=== PATIENT | female | born 1955 | race Hispanic/Latino ===

== ENCOUNTER → 2019-05-25 | Outpatient (CLI) | payer OTHER | END | disposition home or self-care (01) | LOC: SHCH 08:16 | PROVIDERS: ATTEND Internal Medicine Cardiovascular Disease | DX: I10 Essential (primary) hypertension (principal); R42 Dizziness and giddiness | CPT/HCPCS: 93306; 93356 ==

== ENCOUNTER → 2021-07-03 | Outpatient (CLI) | payer OTHER ==
[~2021-07-03] VITALS: Ht 154.9 cm; Wt 69.9 kg
[~2021-07-03] MED LIST: REGADENOSON 0.4 MG/5 ML PF SYG IVP SCH
== END | disposition home or self-care (01) ==
LOC: SHCH 07:36
PROVIDERS: ATTEND Internal Medicine Cardiovascular Disease
DX: I11.9 Hypertensive heart disease without heart failure (principal); I25.9 Chronic ischemic heart disease, unspecified
CPT/HCPCS: 78452; 93017; 96374; A9500 ×2; J2785

== ENCOUNTER 2021-08-11 05:32 | Day surgery (SDC) | payer OTHER ==
[2021-08-07 12:58] LABS: APPEARANCE,URINE Clear (CLEAR); BILIRUBIN,URINE Negative (NEGATIVE); COLOR,URINE Yellow (YELLOW); GLUCOSE, URINE (UA) Negative (NEGATIVE); KETONES,URINE Negative (NEGATIVE); LEUKOCYTE ESTERASE ,URINE Moderate (NEGATIVE); NITRATE,URINE Negative (NEGATIVE); OCCULT BLOOD,URINE Nonhemolyzed Trace (NEGATIVE); PROTEIN,URINE Negative (NEGATIVE)
[2021-08-07 13:14] LABS: INR 1.06 (0.85-1.15); PROTHROMBIN TIME 11.5 SEC (9.6-11.6)
[2021-08-07 13:16] LABS: CREATININE 0.6 mg/dL (0.5-1.5); PARTIAL THROMBOPLASTIN TIME 26.9 SEC (26.3-35.5); POTASSIUM 4.1 mmol/L (3.5-5.1)
[2021-08-07 14:23] LABS: BACTERIA,URINE Few /HPF (None Seen); RBC,URINE 0-1 /HPF (0-1)
[2021-08-10 10:55] LABS: BASOPHILS % (AUTO) 0.6 % (0.0-5.0); LYMPHOCYTES % (AUTO) 22.9 % (21.0-51.0); MEAN CORPUSCULAR HEMOGLOBIN 31.2 pg (27.0-33.0); MEAN CORPUSCULAR HGB CONC 34.5 g/dL (32.0-36.0); MEAN CORPUSCULAR VOLUME 90.5 fL (79-99); MONOCYTES % (AUTO) 7.3 % (3.0-13.0); PLATELET COUNT (AUTO) 263 K/uL (130-400); RED CELL DISTRIBUTION WIDTH 12.9 % (11.0-15.5); WHITE BLOOD COUNT (AUTO) 8.3 K/uL (4.8-10.8)
[2021-08-11] VITALS (14 sets, daily range): BP systolic 134–169; BP diastolic 72–81
[~2021-08-11] VITALS: Ht 152.4 cm; Wt 69.7 kg
[~2021-08-11 05:32] MED LIST changes: +LOSA1TAB42 PO; +LOVA40TA2 PO; +METO25TA6 PO; +OMEP-420 PO; -REGADENOSON 0.4 MG/5 ML PF SYG IVP SCH
[2021-08-11] MEDS ORDERED: 0.9%NACL 1000ML 1,000 ML IV ONE (06:32)
[2021-08-11] MEDS ORDERED: HEPARIN 10,000 UNIT/10ML (1,000 UNIT/ML) VIAL ONE (07:08)
[2021-08-11] MEDS ORDERED: BIVALIRUDIN 250 MG/VIAL IV ONE (07:08)
[2021-08-11] MEDS ORDERED: LIDOCAINE HCL 400MG/20ML VIAL ONE (07:08)
[2021-08-11] MEDS ORDERED: IOHEXOL-350 50ML VIAL IV ONE (07:08)
[2021-08-11] MEDS ORDERED: NITROGLYCERIN 50MG VIAL ONE (07:08)
[2021-08-11] MEDS ORDERED: IOHEXOL 350 MG/ML 100ML INFUS..BTL IV ONE (07:09)
[2021-08-11] MEDS ORDERED: IOHEXOL-350 75 ML VIAL IV ONE (07:10)
[2021-08-11] MEDS ORDERED: LABETALOL 20MG VIAL IV ONE (07:59)
[2021-08-11] MEDS ORDERED: 0.9%NACL 10ML VIAL IVP SCH (08:00)
== END 2021-08-11 16:20 | disposition home or self-care (01) ==
LOC: DAH 05:32
PROVIDERS: ATTEND Internal Medicine Cardiovascular Disease
DX: I25.119 Atherosclerotic heart disease of native coronary artery with unspecified angina pectoris (principal); I10 Essential (primary) hypertension; E78.5 Hyperlipidemia, unspecified; Z79.01 Long term (current) use of anticoagulants; Z79.82 Long term (current) use of aspirin; Z79.899 Other long term (current) drug therapy; Z95.5 Presence of coronary angioplasty implant and graft; Z98.890 Other specified postprocedural states; Z82.49 Family history of ischemic heart disease and other diseases of the circulatory system
CPT/HCPCS: 36415 ×2; 71045; 80048; 81001; 83880; 85025; 85610; 85730; 87088; 93005; 93458; A4215; A4216; A4221; A4222; A4223 ×3; A4606; A4663; C1894; J1644 ×2; J3490 ×3; J7030; Q9965 ×2; Q9967 ×3; J0583